=== PATIENT | male | born 1965 | race Caucasian/White ===

== ENCOUNTER 2021-07-27 17:18 | Outpatient (REF) | payer BC, SELFPAY ==
[2021-07-27 17:39] LABS: Hematocrit 43.7 % (42.0-52.0); Hemoglobin 14.8 g/dl (14.0-18.0); Mean Corpuscular HGB Conc 33.9 g/dl (31.0-36.0); Mean Corpuscular Hemoglobin 29.7 pg (27.0-33.0); Mean Corpuscular Volume 87.8 fL (80.0-98.0); Mean Platelet Volume 10.6 fL (9.4-12.4); Platelet Count 172 X10*3/uL (160-400); Red Blood Count 4.98 X10*6/uL (4.60-5.80); Red Cell Distribution Width 13.2 % (11.0-16.0); White Blood Count 6.2 X10*3/uL (4.8-10.8)
[2021-07-27 18:01] LABS: Alanine Aminotransferase 20 U/L (0-40); Albumin Level 4.2 g/dL (3.5-5.0); Alkaline Phosphatase 90 U/L (39-117); Anion Gap 11 (12-20); Aspartate Amino Transferase 13 U/L (5-37); Bilirubin Direct 0.2 mg/dL (0.0-0.5); Bilirubin Total 0.6 mg/dL (0.0-1.0); Blood Urea Nitrogen 20 mg/dL (9-16); Calcium 9.6 mg/dL (8.4-10.2); Carbon Dioxide 26 mmol/L (22-29); Chloride 105 mmol/L (96-108); Cholesterol 198 mg/dL; Estimated Glomerular Filt Rate > 60; Glucose Random 113 mg/dL (60-115); HDL Cholesterol 34 mg/dL; LDL Cholesterol Calculated 112 mg/dl; Potassium 4.1 mmol/L (3.3-5.1); Sodium 138 mmol/L (135-145); Total Protein 6.8 g/dL (6.5-8.0); Triglycerides 263 mg/dL
[2021-07-27 18:05] LABS: Estimated Average Glucose 128 mg/dL; Hemoglobin A1c % 6.1 %
[2021-07-27 19:02] LABS: Appearance Urine CLEAR; Color Urine YELLOW; Glucose Urine UA NEG (NEG); Leukocyte Esterase Urine NEG (NEG); Nitrite Urine NEG (NEG); PH 5.5 (5.0-8.0); Urine Blood NEG (NEG); Urine Ketones NEG (NEG); Urine Protein NEG (NEG-TRACE)
[2021-07-27 19:18] LABS: Creatinine Urine 76.78 mg/dL; Microalbumin Urine < 5.0 mg/L
== END 2021-07-27 17:19 | disposition home or self-care (01) ==
LOC: HO.LAB 17:18
PROVIDERS: PCP Internal Medicine; Visit Provider Internal Medicine
DX: E11.9 Type 2 diabetes mellitus without complications (principal)
CPT/HCPCS: 36415; 80048; 80061; 80076; 81003; 82043; 83036; 85027

== ENCOUNTER 2022-02-16 15:46 | Outpatient (REF) | payer BC, SELFPAY ==
[2022-02-16 17:30] LABS: Hematocrit 46.1 % (42.0-52.0); Mean Corpuscular HGB Conc 34.7 g/dl (31.0-36.0); Mean Corpuscular Hemoglobin 30.2 pg (27.0-33.0); Mean Corpuscular Volume 87.1 fL (80.0-98.0); Platelet Count 179 X10*3/uL (160-400); Red Blood Count 5.29 X10*6/uL (4.60-5.80); Red Cell Distribution Width 13.2 % (11.0-16.0); White Blood Count 7.7 X10*3/uL (4.8-10.8)
[2022-02-16 17:36] LABS: Appearance Urine Clear; Color Urine Yellow; Glucose Urine UA 500 mg/dL (Negative); Leukocyte Esterase Urine Negative (Negative); Nitrite Urine Negative (Negative); PH 5.5 (5.0-9.0); Specific Gravity - Urine 1.025 (1.005-1.025); Urine Blood Negative (Negative); Urine Ketones Negative (Negative); Urine Protein Negative (Neg-Trace)
[2022-02-16 17:52] LABS: Alanine Aminotransferase 12 U/L (0-40); Albumin Level 4.5 g/dL (3.5-5.0); Alkaline Phosphatase 74 U/L (39-117); Anion Gap 16 (12-20); Aspartate Amino Transferase 12 U/L (5-37); Bilirubin Direct 0.2 mg/dL (0.0-0.5); Bilirubin Total 0.6 mg/dL (0.0-1.0); Blood Urea Nitrogen 21 mg/dL (9-16); Calcium 9.3 mg/dL (8.4-10.2); Carbon Dioxide 22 mmol/L (22-29); Chloride 107 mmol/L (96-108); Cholesterol 192 mg/dL; Estimated Glomerular Filt Rate > 60; Glucose Random 75 mg/dL (60-115); HDL Cholesterol 39 mg/dL; LDL Cholesterol Calculated 110 mg/dl; Potassium 4.3 mmol/L (3.3-5.1); Sodium 141 mmol/L (135-145); Triglycerides 217 mg/dL
[2022-02-16 17:57] LABS: Microalbum/Creatinine Ratio Ur 5.1 ug/mg cr
[2022-02-16 18:15] LABS: Thyroid Stimulating Hormone 1.38 uIU/mL (0.32-4.0)
[2022-02-17 08:02] LABS: Estimated Average Glucose 126 mg/dL
== END 2022-02-16 15:47 | disposition home or self-care (01) ==
LOC: HO.LAB 15:46
PROVIDERS: Visit Provider Internal Medicine
DX: E11.9 Type 2 diabetes mellitus without complications (principal)
CPT/HCPCS: 36415; 80048; 80061; 80076; 81003; 82043; 83036; 84443; 85027

== ENCOUNTER 2022-09-07 16:01 | Outpatient (REF) | payer BC, SELFPAY ==
[2022-09-07 16:35] LABS: Hematocrit 44.7 % (42.0-52.0); Hemoglobin 15.5 g/dl (14.0-18.0); Mean Corpuscular HGB Conc 34.7 g/dl (31.0-36.0); Mean Corpuscular Hemoglobin 30.9 pg (27.0-33.0); Mean Corpuscular Volume 89.2 fL (80.0-98.0); Platelet Count 157 X10*3/uL (160-400); Red Blood Count 5.01 X10*6/uL (4.60-5.80)
[2022-09-07 17:05] LABS: Alanine Aminotransferase 23 U/L (0-40); Albumin Level 4.3 g/dL (3.5-5.0); Alkaline Phosphatase 76 U/L (39-117); Anion Gap 13 (12-20); Aspartate Amino Transferase 14 U/L (5-37); Bilirubin Direct 0.2 mg/dL (0.0-0.5); Bilirubin Total 0.7 mg/dL (0.0-1.0); Blood Urea Nitrogen 19 mg/dL (9-16); Calcium 9.3 mg/dL (8.4-10.2); Carbon Dioxide 25 mmol/L (22-29); Chloride 108 mmol/L (96-108); Cholesterol 197 mg/dL; Estimated Glomerular Filt Rate > 60; Glucose Random 138 mg/dL (60-115); HDL Cholesterol 37 mg/dL; LDL Cholesterol Calculated 122 mg/dl; Potassium 4.6 mmol/L (3.3-5.1); Sodium 141 mmol/L (135-145); Total Protein 6.6 g/dL (6.5-8.0); Triglycerides 193 mg/dL
[2022-09-07 17:20] LABS: Thyroid Stimulating Hormone 1.35 uIU/mL (0.32-4.0)
== END 2022-09-07 16:02 | disposition home or self-care (01) ==
LOC: HO.LAB 16:01
PROVIDERS: PCP Internal Medicine; Visit Provider Internal Medicine
DX: E11.9 Type 2 diabetes mellitus without complications (principal)
CPT/HCPCS: 36415; 80048; 80061; 80076; 84443; 85027

== ENCOUNTER 2023-04-05 14:46 | Outpatient (AMB) | payer BC, SELFPAY ==
--- NOTE | 2023-04-05 14:54 | MHC.PC.OV ---
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 Patient is compliant with medications and reporting no side effects. Able to function and do all activities of daily living. Does not check his blood sugars frequently. Exercising regularly. Not following any particular diet. [facility] Medical History Type 2 diabetes mellitus without complications Surgical History No pertinent past surgical history Family History Mother Thyroid disease Social History Housing: House Alcohol intake: never Patient Tobacco Use Status: Never used Tobacco e-Cigarette/Vaping Use: Never Used Second Hand Smoke Exposure: No service: Yes Current occupational status: employed Current occupational exposures/hazards: No Cognitive needs: No Hearing needs: No Vision needs: Yes (glasses) Questionnaire Thrive Questionnaire Date Thrive assessed: 09/07/22 SHAMEKA-7 AMB Questionnaire SHAMEKA-7 Date SHAMEKA - 7 assessed: 09/07/22 Source: Developed by Drs. Paddy Nascimento, Karissa Jaffe, Delvin Ryan and colleagues, with an educational ellen from [employer]. Physical exam (Primary Care) Vital Signs: Last Vital Signs Pulse 65 04/05/23 14:55 BP 118/70 04/05/23 14:55 Pulse Ox 97 04/05/23 14:55 Oxygen Delivery Method Room Air 04/05/23 14:55 BMI result Body Mass Index 32.4 Tobacco/Smoking Status: Tobacco use Status Tobacco use date assessed 09/07/22 04/05/23 14:59 Patient Tobacco Use Status Never used Tobacco 04/05/23 14:59 e-Cigarette/Vaping Use Never Used 04/05/23 14:59 Thrive Assessment: Date of Thrive Assessment Date Thrive assessed 09/07/22 04/05/23 14:59 Const General: cooperative and healthy appearing Nutritional Appearance: well nourished Orientation/consciousness: patient oriented x3 Limitations: no limitations HENMT Head: Yes normal to inspection Eyes General: appearance normal, both eyes and all related structures Neck Neck: Yes normal visual inspection Chest Chest palpation & inspection: normal palpation of entire chest wall Resp Effort & Inspection: normal respiratory effort Neuro General: patient oriented x3 Office Procedures Flu Questionnaire Does the patient have a severe egg allergy?: No Results AMB Hemoglobin A1c AMB Hemoglobin A1c 6.7 % Last Edit by ROSEMARIE Shearer on 04/05/23 15:08 Immunizations flu vacc [id number] 6mos up(PF) 60 mcg(15 mcgx4)/0.5 mL IM syringe Performing Provider: Jatinder Vee MD [facility] Documented (not given) by: ROSEMARIE Shearer on 04/05/23 15:00 Reason Not Given: Received Previously Results Reviewed Results Reviewed: Laboratory Last Values Hgb A1c (Clinic) 6.7 % (4.0-6.0) H 04/05/23 15:00 Assessment and Plan Assessment & Plan (1) Type 2 diabetes mellitus without complications: Code(s): E11.9 - Type 2 diabetes mellitus without complications Plan: Elevated A1c. Patient was advised more compliance on diet and exercise. If A1c continues to rise, modifications in medication will be done. Orders: Orders AMB Hemoglobin A1c 04/05/23 E11.9 - Type 2 diabetes mellitus without complications Influenza [id number] Immunization 04/05/23 Z23 - Encounter for immunization Medications: Refilled metformin 500 mg PO BID 90 days 180 tabs 1RF simvastatin 20 mg PO QPM 90 tabs 1RF sitagliptin phosphate (Mayuvia) 100 mg PO DAILY 90 tabs 0RF tamsulosin 0.4 mg PO DAILY 90 caps 0RF Coding Level of Care Code Est Pt Level 4 (95678) Diagnoses Type 2 diabetes mellitus without complications E11.9
[2023-04-05 14:55] VITALS: BP 118/70; PULSE 65; O2SAT 97; BMI 32.4
== END 2023-04-05 15:31 | disposition home or self-care (01) ==
PROVIDERS: Visit Provider Internal Medicine
DX: E11.9 Type 2 diabetes mellitus without complications (principal)
CPT/HCPCS: 83036; 99214

== ENCOUNTER 2023-07-23 14:28 | Outpatient (AMB) | payer BC, SELFPAY ==
--- NOTE | 2023-07-23 14:31 | MHC.PC.OV ---
Vital Signs 07/23/23 14:32 Height 5 ft 6 in Weight 200 lb 8 oz BMI 32.4 BP 130/78 Blood Pressure Location Lt brachial Position Sitting Pulse 70 Pulse Source Pulse Oximeter Pulse Oximetry (%) 78 L Oxygen Delivery Method Room Air Intake Visit Reasons: f/u Intake Note: Patient is here to follow up on DM, Obesity. Health Insurance Adjuster Required: No Covered Buckle Assembler: Not Required per policy Accompanied by: Self / Same As Patient Allergies No Known Allergies Allergy (Verified 07/23/23 14:32) Tobacco use date assessed: 07/23/23 Dental Screening Dental Screen Date: 07/23/23 Did you have a dental visit in the last 12 months?: Yes Did you have a dental problem in the last 6 months where you did not have access to dental care?: No Was dental information given to patient?: Patient has dentist HPI f/u HPI Details 58-year-old male presents to the office to discuss his chronic medical conditions. Patient is compliant with medications. He has reporting no side effects. Checks his blood sugars periodically. Brings his log for review. Not compliant with diet or exercise. [facility] Medical History Type 2 diabetes mellitus without complications Surgical History No pertinent past surgical history Family History Mother Thyroid disease Social History Housing: House Alcohol intake: never Patient Tobacco Use Status: Never used Tobacco e-Cigarette/Vaping Use: Never Used Second Hand Smoke Exposure: No service: Yes Current occupational status: employed Current occupational exposures/hazards: No Cognitive needs: No Hearing needs: No Vision needs: Yes (glasses) Questionnaire PHQ-9 Over the last 2 weeks, how often have you been bothered by any of the following problems? 1. Little interest or pleasure in doing things: not at all 2. Feeling down, depressed, or hopeless: not at all 3. Trouble falling or staying asleep, or sleeping too much: not at all 4. Feeling tired or having little energy: not at all 5. Poor appetite or overeating: not at all 6. Feeling bad about yourself - or that you are a failure or have let yourself or your family down: not at all 7. Trouble concentrating on things, such as reading the newspaper or watching television: not at all 8. Moving or speaking so slowly that other people could have noticed. Or the opposite - being so fidgety or restless that you have been moving around a lot more than usual: not at all 9. Thoughts that you would be better off or of hurting yourself in some way: not at all Total score: 0 Depression Screening Interpretation: Negative Depression Screening Done: Yes Source: Developed by Drs. Paddy Nascimento, Karissa Jaffe, Delvin Ryan and colleagues, with an educational ellen from [employer]. Thrive Questionnaire Date Thrive assessed: 07/23/23 I am a: Patient What is your living situation today?: I have a steady place to live Within the past 12 months, did the food you bought not last and you didn't have the money to get more?: Never true Within the past 12 months, did you worry whether your food would run out before you got money to buy more?: Never true Do you have trouble paying for medicines?: No Do you have trouble getting transportation to medical appointments?: No Do you have trouble paying your heating and electricity bill?: No Do you have trouble taking care of your child, family member or friend?: No Do you have trouble with day-to-day activities such as bathing, preparing meals, shopping, managing finances, etc.?: No Are you currently unemployed and looking for a job?: No Are you interested in more education?: No Currently or been in a relationship where the following occur: no concerns reported THRIVE Score: 0 AUDIT C Alcohol Use Questionnaire (AUDIT-C) 1. How often do you have a drink containing alcohol?: Never Total Score: 0 SHAMEKA-7 AMB Questionnaire SHAMEKA-7 Date SHAMEKA - 7 assessed: 07/23/23 Feeling nervous, anxious, or on edge: 0 = Not at all Not being able to stop or control worryin = Not at all Worrying too much about different things: 0 = Not at all Trouble relaxin = Not at all Being so restless that it is hard to sit still: 0 = Not at all Becoming easily annoyed or irritable: 0 = Not at all Feeling afraid as if something awful might happen: 0 = Not at all Total SHAMEKA-7 score (0-4 normal; 5-9 mild; 10-14 moderate; 15-21 severe): 0 Source: Developed by Drs. Paddy Nascimento, Karissa Jaffe, Delvin Ryan and colleagues, with an educational ellen from [employer]. Physical exam (Primary Care) Vital Signs: Last Vital Signs Pulse 70 07/23/23 14:32 BP 130/78 07/23/23 14:32 Pulse Ox 78 L 07/23/23 14:32 Oxygen Delivery Method Room Air 07/23/23 14:32 BMI result Body Mass Index 32.4 Tobacco/Smoking Status: Tobacco use Status Tobacco use date assessed 07/23/23 07/23/23 14:41 Patient Tobacco Use Status Never used Tobacco 07/23/23 14:41 e-Cigarette/Vaping Use Never Used 07/23/23 14:41 PHQ-9: PHQ-9 Score PHQ-9: Total score 0 07/23/23 14:41 Depression Screening Interpretation: Negative Thrive Assessment: Date of Thrive Assessment Date Thrive assessed 07/23/23 07/23/23 14:41 Currently or been in a relationship where the following occur: no concerns reported Const General: cooperative and healthy appearing Nutritional Appearance: well nourished Orientation/consciousness: patient oriented x3 Limitations: no limitations HENMT Head: Yes normal to inspection Eyes General: appearance normal, both eyes and all related structures Neck Neck: Yes normal visual inspection Chest Chest palpation & inspection: normal palpation of entire chest wall Resp Effort & Inspection: normal respiratory effort Neuro General: patient oriented x3 Results AMB Hemoglobin A1c AMB Hemoglobin A1c 7.2 % Last Edit by ROSEMARIE Fischer on 07/23/23 14:44 Results Reviewed Results Reviewed: Laboratory Last Values Hgb A1c (Clinic) 7.2 % (4.0-6.0) H 07/23/23 14:30 Assessment and Plan Assessment & Plan (1) Type 2 diabetes mellitus without complications: Code(s): E11.9 - Type 2 diabetes mellitus without complications Plan: A1c is 7.2. Patient was encouraged to increase his diet and be more compliant with exercise. If A1c continues to rise, Jardiance will be added to the regimen. Orders: Orders Basic Metabolic Panel Today E11.9 - Type 2 diabetes mellitus without complications Complete Blood Count no Diff Today E11.9 - Type 2 diabetes mellitus without complications Thyroid Stimulating Hormone Today E11.9 - Type 2 diabetes mellitus without complications UA and rflx microscopic Today E11.9 - Type 2 diabetes mellitus without complications Microalbumin, Random (w Creat) Today E11.9 - Type 2 diabetes mellitus without complications AMB Hemoglobin A1c Today E11.9 - Type 2 diabetes mellitus without complications Lipid Panel Today E11.9 - Type 2 diabetes mellitus without complications Liver Panel Today E11.9 - Type 2 diabetes mellitus without complications Medications: Refilled sitagliptin phosphate (Januvia) 100 mg PO DAILY 90 tabs 0RF Coding Level of Care Code Est Pt Level 4 (35510) Diagnoses Type 2 diabetes mellitus without complications E11.9
[2023-07-23 14:32] VITALS: BP 130/78; PULSE 70; O2SAT 78; BMI 32.4
== END 2023-07-23 15:31 | disposition home or self-care (01) ==
PROVIDERS: PCP Internal Medicine; Visit Provider Internal Medicine
DX: E11.9 Type 2 diabetes mellitus without complications (principal)
CPT/HCPCS: 83036; 99214

== ENCOUNTER 2023-07-23 15:37 | Outpatient (REF) | payer BC, SELFPAY ==
[2023-07-23 15:55] LABS: Hematocrit 44.1 % (42.0-52.0); Hemoglobin 15.5 g/dl (14.0-18.0); Mean Corpuscular HGB Conc 35.1 g/dl (31.0-36.0); Mean Corpuscular Hemoglobin 30.6 pg (27.0-33.0); Mean Corpuscular Volume 87.2 fL (80.0-98.0); Mean Platelet Volume 10.9 fL (9.4-12.4); Platelet Count 146 X10*3/uL (160-400); Red Blood Count 5.06 X10*6/uL (4.60-5.80); White Blood Count 6.7 X10*3/uL (4.8-10.8)
[2023-07-23 16:51] LABS: Alanine Aminotransferase 19 U/L (0-40); Albumin Level 4.3 g/dL (3.5-5.0); Alkaline Phosphatase 66 U/L (39-117); Anion Gap 11 (12-20); Aspartate Amino Transferase 12 U/L (5-37); Bilirubin Direct 0.2 mg/dL (0.0-0.5); Bilirubin Total 0.7 mg/dL (0.0-1.0); Blood Urea Nitrogen 18 mg/dL (9-16); Calcium 9.4 mg/dL (8.4-10.2); Carbon Dioxide 25 mmol/L (22-29); Chloride 107 mmol/L (96-108); Cholesterol 200 mg/dL (<200); Estimated Glomerular Filt Rate > 60; Glucose Random 132 mg/dL (60-115); HDL Cholesterol 40 mg/dL (>40); LDL Cholesterol Calculated 124 mg/dL (<100); Sodium 139 mmol/L (135-145); Total Protein 6.9 g/dL (6.5-8.0); Triglycerides 183 mg/dL (<150)
[2023-07-23 17:07] LABS: Thyroid Stimulating Hormone 2.06 uIU/mL (0.32-4.0)
[2023-07-23 17:15] LABS: Appearance Urine Clear; Color Urine Yellow; Glucose Urine UA 250 mg/dL (Negative); Leukocyte Esterase Urine Negative (Negative); Nitrite Urine Negative (Negative); PH 5.5 (5.0-9.0); Urine Blood Negative (Negative); Urine Ketones Negative (Negative); Urine Protein Negative (Neg-Trace)
[2023-07-23 18:09] LABS: Microalbum/Creatinine Ratio Ur 9.9 ug/mg cr (<30)
== END 2023-07-23 15:38 | disposition home or self-care (01) ==
LOC: HO.LAB 15:37
PROVIDERS: PCP Internal Medicine; Visit Provider Internal Medicine
DX: E11.9 Type 2 diabetes mellitus without complications (principal)
CPT/HCPCS: 36415; 80048; 80061; 80076; 81003; 82043; 82570; 84443; 85027

== ENCOUNTER 2023-10-25 14:59 | Outpatient (AMB) | payer BC, SELFPAY ==
--- NOTE | 2023-10-25 15:18 | MHC.PC.OV ---
Vital Signs 10/25/23 15:19 Height 5 ft 6 in Weight 190 lb BMI 30.7 BP 132/66 Blood Pressure Location Lt brachial Position Sitting Pulse 73 Pulse Source Pulse Oximeter Pulse Oximetry (%) 98 Oxygen Delivery Method Room Air Intake Visit Reasons: Lump in-between neck and left shoulder Intake Note: Patient is here to follow up on Lump in-between neck and left shoulder causing burning pain, numbness and weakness radiation down left arm, ongoing for 12 days. Eligibility Technician Required: No Gun Fitter: Not Required per policy Accompanied by: Self / Same As Patient Allergies No Known Allergies Allergy (Verified 10/26/23 14:33) Medication List - Last Reconciled 10/26/23 by Jatinder Vee MD blood sugar diagnostic (FreeStyle Test strips) twice a day blood-glucose meter (FreeStyle Lite Meter kit) As directed flash glucose scanning reader (FreeStyle Candace 2 [place]) As directed meloxicam 15 mg PO DAILY metformin 500 mg PO BID 90 days prednisone 40 mg (2 x 20 mg) PO DAILY simvastatin 40 mg PO BEDTIME sitagliptin phosphate (Januvia) 100 mg PO DAILY tamsulosin 0.4 mg PO DAILY Tobacco use date assessed: 10/25/23 Dental Screening Dental Screen Date: 07/23/23 HPI Lump in-between neck and left shoulder HPI Details 58-year-old male presents to the office for a sick visit. Patient is reporting pain in the left elbow and a swelling over the left shoulder. Symptoms started 2 weeks ago, when he reached above his head to lift a heavy object. He felt a twinge on the lateral side of the elbow. Symptoms have progress to marked discomfort and pain in the elbow and forearm. He is also noticed that he is unable to lift objects with the left arm. Has noticed a swelling on the left shoulder. Tingling sensation in the 4th and 5th digits on the lateral side. No fall. [facility] Medical History Type 2 diabetes mellitus without complications Surgical History No pertinent past surgical history Family History Mother Thyroid disease Social History (Reviewed 10/25/23 @ 15:18 by TRISH Fischer Housing: House Alcohol intake: never Patient Tobacco Use Status: Never used Tobacco e-Cigarette/Vaping Use: Never Used Second Hand Smoke Exposure: No service: Yes Current occupational status: employed Current occupational exposures/hazards: No Cognitive needs: No Hearing needs: No Vision needs: Yes (glasses) Questionnaire Thrive Questionnaire Date Thrive assessed: 07/23/23 SHAMEKA-7 AMB Questionnaire SHAMEKA-7 Date SHAMEKA - 7 assessed: 07/23/23 Source: Developed by Drs. Paddy Nascimento, Karissa Jaffe, Delvin Ryan and colleagues, with an educational ellen from [employer]. Physical exam (Primary Care) Vital Signs: Last Vital Signs Pulse 73 10/25/23 15:19 BP 132/66 10/25/23 15:19 Pulse Ox 98 10/25/23 15:19 Oxygen Delivery Method Room Air 10/25/23 15:19 BMI result Body Mass Index 30.7 Tobacco/Smoking Status: Tobacco use Status Tobacco use date assessed 10/25/23 10/25/23 15:25 Patient Tobacco Use Status Never used Tobacco 10/25/23 15:25 e-Cigarette/Vaping Use Never Used 10/25/23 15:25 Thrive Assessment: Date of Thrive Assessment Date Thrive assessed 07/23/23 10/25/23 15:25 Extrem Other: Left elbow: Tenderness over the medial epicondyle. Tenderness over the forearm. Pain on flexion or extension at the elbow. Left shoulder: Swelling over the left trapezius. Indistinct borders. Nontender. Assessment and Plan Assessment & Plan (1) Swelling, mass, or lump in head and neck: Code(s): R22.0 - Localized swelling, mass and lump, head; R22.1 - Localized swelling, mass and lump, neck Plan: Patient has tendinitis at the lateral epicondyle of the arm. Persistent use despite the inflammation has caused worsening of the symptoms. A sling has been provided. Prednisone and meloxicam has been given. Patient was advised not to use the left upper extremity. Orders: Orders US soft tiss head and/or neck 10/25/23 R22.0 - Localized swelling, mass and lump, head, R22.1 - Localized swelling, mass and lump, neck Medications: New meloxicam 15 mg PO DAILY 14 tabs 0RF prednisone 40 mg (2 x 20 mg) PO DAILY 6 tabs 0RF Coding Level of Care Code Est Pt Level 4 (46066) Diagnoses Swelling, mass, or lump in head and neck R22.0; R22.1
[2023-10-25 15:19] VITALS: BP 132/66; PULSE 73; O2SAT 98; BMI 30.7
== END 2023-10-25 16:32 | disposition home or self-care (01) ==
PROVIDERS: PCP Internal Medicine; Visit Provider Internal Medicine
DX: R22.0 Localized swelling, mass and lump, head (principal); R22.1 Localized swelling, mass and lump, neck
CPT/HCPCS: 99214

== ENCOUNTER 2023-11-06 13:15 | Outpatient (REF) | payer BC, SELFPAY ==
--- NOTE | ~2023-11-06 | US_ITS ---
EXAMINATION: US CHEST CLINICAL INFORMATION: Palpable lump superficial to the left trapezius and upper back. COMPARISON: None available. TECHNIQUE: Using a linear transducer grayscale and color modalities, ultrasound examination performed of the soft tissues of the left shoulder and upper back. FINDINGS: The cutaneous, subcutaneous, muscular and fascial planes are unremarkable. Corresponding with the palpable finding in the posterior left shoulder soft tissues, a 4.7 x 1.7 x 4.7 cm hypoechoic, circumscribed mass is seen. This shows sharp margins and no associated color Doppler flow. There is no change in through sound transmission. No fluid collection is seen. There is no lymphadenopathy. No foreign body is seen. US/US chest IMPRESSION: Corresponding with the palpable finding, a 4.7 cm hypoechoic, circumscribed mass is seen in the posterior left shoulder subcutaneous layer. The possibility of a lipoma or hibernoma is raised. The exact etiology is indeterminate. If of continued clinical concern, this could be further evaluated with MRI.
== END 2023-11-06 13:16 | disposition home or self-care (01) ==
LOC: HO.US 13:15
PROVIDERS: PCP Internal Medicine; Visit Provider Internal Medicine
DX: R20.0 Anesthesia of skin (principal); R22.1 Localized swelling, mass and lump, neck
CPT/HCPCS: 76604

== ENCOUNTER 2024-01-08 13:04 | Outpatient (AMB) | payer BC, SELFPAY ==
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
[2024-01-08 13:18] VITALS: BP 133/74; PULSE 57; BMI 32.1
== END 2024-01-08 13:42 | disposition home or self-care (01) ==
PROVIDERS: PCP Internal Medicine; Visit Provider Surgery
DX: E88.2 Lipomatosis, not elsewhere classified (principal)
CPT/HCPCS: 99204

== ENCOUNTER → 2024-01-08 13:04 | Outpatient (BNVA) | payer BC, SELFPAY | PROVIDERS: PCP Internal Medicine; Visit Provider Surgery ==

== ENCOUNTER 2024-01-24 09:21 | Day surgery (SDC) | payer BC, SELFPAY ==
[2024-01-22 15:09] VITALS: BMI 32.1
[2024-01-22 15:27] VITALS: BMI 32.0
--- NOTE | 2024-01-23 11:13 | P.HPSUR_ITS ---
Pre-Procedural Eval Section A - 24 Hr Update-Section A only Date of Service: 01/24/24 The patient is an INPATIENT: No Changes since office visit: No Cold of Flu in the past 2 weeks, No New Medical Problems, No Changes in Medication and No Patient answered all questions Section B - Complete if H&P > 30 days Chief Complaint: Lipomatosis, not elsewhere classified Allergies: Allergies Allergy/AdvReac Type Severity Reaction Status Date / Time No Known Allergies Allergy Verified 01/22/24 15:32 Review of Systems Sugical H&P ROS: Negative: Constitution, Cardiovascular, Respiratory, Neurological, Psychiatric, Hem-Onc, Allergic/Immunologic, Gastrointestinal, Genitourinary, Musculoskeletal, Integumentary, Endocrine and Eyes/Ears/Nos e/Throat Exam Surgical H&P Exam: Normal: HEENT, Normal: Heart, Normal: Lungs, Normal: Extremities, Normal: Abdomen, Normal: Skin and Normal: Neurological Plan I have reviewed the history and physical and performed a pertinent physical examination on my patient. No changes have occurred unless specified. Time Spent With Patient Time: Total time managing care of this patient today ____ minutes.
[2024-01-24] VITALS (7 sets, daily range): BP systolic 107–126; BP diastolic 63–79; PULSE 52–62; RESP 14–16; TEMP 36.4–36.5; O2SAT 92–97
[2024-01-24 10:44] LABS: Glucose, Whole Blood 178 mg/dL (60-115)
[2024-01-24] MEDS: Lactated Ringers 1,000 ML 100 ML IVCONT (10:51)
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
--- NOTE | 2024-01-24 11:25 | MHC.SHP ---
Pre-Procedural Eval Section A - 24 Hr Update-Section A only Date of Service: 01/24/24 The patient is an INPATIENT: No Changes since office visit: No Cold of Flu in the past 2 weeks, No New Medical Problems, No Changes in Medication and No Patient answered all questions Section B - Complete if H&P > 30 days Chief Complaint: Lipomatosis, not elsewhere classified Allergies: Allergies Allergy/AdvReac Type Severity Reaction Status Date / Time No Known Allergies Allergy Verified 01/24/24 10:34 Plan I have reviewed the history and physical and performed a pertinent physical examination on my patient. No changes have occurred unless specified. Time Spent With Patient Time: Total time managing care of this patient today ____ minutes.
--- NOTE | 2024-01-24 11:58 | P.OP_ITS ---
Operative Note Operative Note Date of Service: 01/24/24 Narrative: Preoperative diagnosis: [] Symptomatic, enlarging left shoulder lipoma Postop diagnosis: [] The same Procedure [] Wide local excision left shoulder lipoma Surgeon: [] Zhang Executive Director Of Marketing: [] Kenisha Type of Anesthesia: [] MAC Indication for surgery: [] Final specimen measured rough 8 x 6 cm consistent with a large lipoma Findings: [] Patient brought to the operating room, placed on operative table supine position, after an adequate level of MAC anesthesia was induced, patient was placed in the right lateral decubitus position. Left shoulder area was prepped and draped in usual sterile fashion. Using a transverse incision over the mass in question, this carried down through skin, subcutaneous tissue, were superior and inferior skin flaps were developed and circumferentially dissection of the large lipoma down to the deltoid muscle was uneventfully performed using Bovie. Specimen was size was noted above and it was sent to pathology. Wound was irrigated, secured hemostasis, and closed using interrupted inverted dermal 3-0 Vicryl sutures followed by Steri-Strips and sterile dressings. Wound was infiltrated at beginning at the end with 0.5% Marcaine/1% lidocaine. Sponge, needle, and instrument counts were reported correct. Patient tolerated the procedure well and emerged from anesthesia stable condition. EBL minimal
== END 2024-01-24 13:05 | disposition home or self-care (01) ==
PROVIDERS: PCP Internal Medicine; Visit Provider Surgery
PROC: (CPT 23071; principal; 2024-01-24 11:20)
DX: D17.22 Benign lipomatous neoplasm of skin and subcutaneous tissue of left arm (principal); R20.8 Other disturbances of skin sensation; R21 Rash and other nonspecific skin eruption; E11.9 Type 2 diabetes mellitus without complications; E66.9 Obesity, unspecified; Z68.32 Body mass index [BMI] 32.0-32.9, adult; Z87.828 Personal history of other (healed) physical injury and trauma; Z98.890 Other specified postprocedural states
CPT/HCPCS: 23071; 82947; 88304; J0690; J2250; J2704; J2795; J3010

== ENCOUNTER → 2024-01-24 09:21 | Outpatient (BNV) | payer BC, SELFPAY | PROVIDERS: PCP Internal Medicine; Visit Provider Surgery | DX: D17.22 Benign lipomatous neoplasm of skin and subcutaneous tissue of left arm (principal) | CPT/HCPCS: 23071 ==

== ENCOUNTER 2024-02-11 09:19 | Outpatient (AMB) | payer BC, SELFPAY ==
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
== END 2024-02-11 09:38 | disposition home or self-care (01) ==
PROVIDERS: PCP Internal Medicine; Visit Provider Surgery
DX: E88.2 Lipomatosis, not elsewhere classified (principal)
CPT/HCPCS: 99024

== ENCOUNTER → 2024-02-11 09:19 | Outpatient (BNVA) | payer BC, SELFPAY | PROVIDERS: PCP Internal Medicine; Visit Provider Surgery ==

== ENCOUNTER 2024-05-19 14:57 | Outpatient (AMB) | payer OTHER, SELFPAY ==
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
[2024-05-19 15:00] VITALS: BP 120/86; PULSE 94; TEMP 36.7; O2SAT 97; BMI 30.7
== END 2024-05-19 15:35 | disposition home or self-care (01) ==
PROVIDERS: PCP Internal Medicine; Visit Provider Physician Assistant
DX: L50.9 Urticaria, unspecified (principal); R07.89 Other chest pain

== ENCOUNTER → 2024-05-19 14:57 | Outpatient (BNVA) | payer OTHER, SELFPAY | PROVIDERS: PCP Internal Medicine; Visit Provider Physician Assistant | DX: L50.9 Urticaria, unspecified (principal); R07.89 Other chest pain | CPT/HCPCS: 93005; 99212 ==

== ENCOUNTER 2024-06-19 08:54 | Outpatient (REF) | payer BC, OTHER, SELFPAY ==
[2024-06-19 10:23] LABS: Hematocrit 43.8 % (42.0-52.0); Hemoglobin 15.3 g/dl (14.0-18.0); Mean Corpuscular HGB Conc 34.9 g/dl (31.0-36.0); Mean Corpuscular Hemoglobin 30.5 pg (27.0-33.0); Mean Corpuscular Volume 87.4 fL (80.0-98.0); Platelet Count 161 X10*3/uL (160-400); Red Blood Count 5.01 X10*6/uL (4.60-5.80); Red Cell Distribution Width 13.4 % (11.0-16.0)
[2024-06-19 10:37] LABS: Estimated Average Glucose 154 mg/dL; Hemoglobin A1C 203.3415 umol/L; Total Hemoglobin (HGBA1C) 3869.5928 umol/L
[2024-06-19 10:52] LABS: Creatinine Urine 144.19 mg/dL; Microalbum/Creatinine Ratio Ur 6.2 ug/mg cr (<30)
[2024-06-19 11:04] LABS: Alanine Aminotransferase 19 U/L (0-40); Albumin Level 4.3 g/dL (3.5-5.0); Alkaline Phosphatase 68 U/L (39-117); Anion Gap 12 (12-20); Aspartate Amino Transferase 17 U/L (5-37); Bilirubin Direct 0.2 mg/dL (0.0-0.5); Bilirubin Total 0.6 mg/dL (0.0-1.0); Blood Urea Nitrogen 28 mg/dL (9-16); Calcium 9.5 mg/dL (8.4-10.2); Carbon Dioxide 23 mmol/L (22-29); Chloride 108 mmol/L (96-108); Cholesterol 191 mg/dL (<200); Estimated Glomerular Filt Rate > 60; Glucose Random 136 mg/dL (60-115); HDL Cholesterol 39 mg/dL (>40); LDL Cholesterol Calculated 116 mg/dL (<100); Sodium 139 mmol/L (135-145); Total Protein 7.1 g/dL (6.5-8.0); Triglycerides 184 mg/dL (<150)
[2024-06-19 11:21] LABS: Thyroid Stimulating Hormone 3.06 uIU/mL (0.32-4.0)
== END 2024-06-19 08:55 | disposition home or self-care (01) ==
LOC: HO.LAB 08:54
PROVIDERS: PCP Internal Medicine; Visit Provider Internal Medicine
DX: E11.9 Type 2 diabetes mellitus without complications (principal)
CPT/HCPCS: 36415; 80048; 80061; 80076; 82043; 82570; 83036; 84443; 85027

== ENCOUNTER 2024-06-19 08:54 | Outpatient (AMB) | payer BC, OTHER, SELFPAY ==
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
[2024-06-19 09:07] VITALS: BP 130/64; PULSE 61; TEMP 36.3; O2SAT 96; BMI 30.9
== END 2024-06-19 09:38 | disposition home or self-care (01) ==
PROVIDERS: PCP Internal Medicine; Visit Provider Internal Medicine
DX: E11.9 Type 2 diabetes mellitus without complications (principal)

== ENCOUNTER 2025-01-14 13:10 | Outpatient (AMB) | payer OTHER, SELFPAY ==
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
[2025-01-14 13:18] VITALS: BP 130/80; PULSE 69; TEMP 36.2; O2SAT 94; BMI 32.2
== END 2025-01-14 13:48 | disposition home or self-care (01) ==
LOC: HO.HMCH 13:10
PROVIDERS: PCP Internal Medicine; Visit Provider Internal Medicine
DX: E11.9 Type 2 diabetes mellitus without complications (principal)

== ENCOUNTER → 2025-01-14 13:10 | Outpatient (BNVA) | payer OTHER, SELFPAY | PROVIDERS: PCP Internal Medicine; Visit Provider Internal Medicine | DX: E11.9 Type 2 diabetes mellitus without complications (principal); K05.6 Periodontal disease, unspecified; Z79.84 Long term (current) use of oral hypoglycemic drugs; Z13.31 Encounter for screening for depression | CPT/HCPCS: 83036; 96127; 99212 ==